=== PATIENT | female | born 1995 | race Caucasian/White ===

== ENCOUNTER 2018-06-26 15:20 | Emergency (ER) | payer OTHER ==
--- NOTE | 2018-06-26 16:17 | ER Document Report ---
ED Medical Screen (RME) - General Chief Complaint: Abdominal Pain Stated Complaint: ABDOMINAL PAIN Time Seen by Provider: 06/26/18 16:10 Mode of Arrival: Ambulatory Information source: Patient Notes: This is a 22-year-old female 2 para 1, last normal menstrual period May 13 () who presents to the emergency room with lower abdominal pain since last night. Patient denies vaginal bleeding. Surgical history: Chiari malformation (in seventh grade in [place]), tonsils Daniels's: Penicillin Allergies: Codeine - Related Data Allergies/Adverse Reactions: codeine Allergy (Verified 06/26/18 15:24) Physical Exam - Vital signs Vitals: Temp Pulse Resp BP Pulse Ox 98.5 F 93 14 121/55 L 100 06/26/18 15:55 06/26/18 15:55 06/26/18 15:55 06/26/18 15:55 06/26/18 15:55 Course - Vital Signs Vital signs: Temp Pulse Resp BP Pulse Ox 98.5 F 93 14 121/55 L 100 06/26/18 15:55 06/26/18 15:55 06/26/18 15:55 06/26/18 15:55 06/26/18 15:55
[2018-06-26 17:17] LABS: APPEARANCE,URINE CLEAR; BILIRUBIN,URINE NEGATIVE (NEGATIVE); COLOR,URINE STRAW; GLUCOSE, URINE NEGATIVE (NEGATIVE); KETONES,URINE NEGATIVE (NEGATIVE); LEUKOCYTE ESTERASE,URINE SMALL (NEGATIVE); NITRITE,URINE NEGATIVE (NEGATIVE); PROTEIN,URINE NEGATIVE (NEGATIVE); URINE SPECIFIC GRAVITY 1.003; UROBILINOGEN,URINE NEGATIVE mg/dL (<2.0)
--- NOTE | 2018-06-26 19:04 | ER Document Report ---
ED General <JIMENA FARRAR - Last Filed: 06/26/18 19:36> - General Mode of Arrival: Ambulatory Information source: Patient <BARBARA MORAN - Last Filed: 06/27/18 02:08> - General Chief Complaint: Abdominal Pain Stated Complaint: ABDOMINAL PAIN Time Seen by Provider: 06/26/18 16:10 Notes: Patient is a 22-year-old female, currently approximatly 7 weeks , with a history of Chiari malformation type 1 presents to the emergency department complaining of left lower quadrant abdominal pain onset 5 days ago. Patient states at that time, she was moving from a sitting position to a standing position when she felt a sharp pain over her left ovary. Patient states the pain took her breath away and she immediately had to "squat". She states since onset, she has had constant left lower quadrant abdominal pain which is nonradiating. She states the pain is relieved when sitting still. Patient is currently . Patient's last menstrual period was May 13, 2018.Patient states that she has not seen a steeping press operator and is currently taking [id number] vitamins. (BARBARA MORAN) - Related Data Allergies/Adverse Reactions: codeine Allergy (Verified 06/26/18 15:24) Past Medical History - General Information source: Patient - Social History Smoking Status: Current Every Day Smoker Cigarette use (# per day): Yes - Approx. 10 cigs a day. Chew tobacco use (# tins/day): No Frequency of alcohol use: None Drug Abuse: None Family History: Reviewed & Not Pertinent Patient has suicidal ideation: No Patient has homicidal ideation: No - Past Medical History Cardiac Medical History: Reports: Hx Hypertension - during first Past Surgical History: Reports: Hx Neurologic Surgery - brain surgery in middle school to correctn chiari malformation, Hx Tonsillectomy <DEANBARBARA - Last Filed: 06/27/18 02:08> Review of Systems - Review of Systems Constitutional: No symptoms reported EENT: No symptoms reported Cardiovascular: No symptoms reported Respiratory: No symptoms reported Gastrointestinal: See HPI, Abdominal pain Genitourinary: No symptoms reported Female Genitourinary: See HPI, Musculoskeletal: No symptoms reported Skin: No symptoms reported Hematologic/Lymphatic: No symptoms reported Neurological/Psychological: No symptoms reported -: Yes All other systems reviewed and negative <BARBARA MORAN - Last Filed: 06/27/18 02:08> Physical Exam <BARBARA MORAN - Last Filed: 06/27/18 02:08> - Vital signs Vitals: Temp Pulse Resp BP Pulse Ox 98.5 F 93 14 121/55 L 100 06/26/18 15:55 06/26/18 15:55 06/26/18 15:55 06/26/18 15:55 06/26/18 15:55 - Notes Notes: GENERAL: Alert, interacts well. No acute distress. HEAD: Normocephalic, atraumatic. EYES: Pupils equal, round, and reactive to light. Extraocular movements intact. ENT: Oral mucosa moist, tongue midline. NECK: Full range of motion. Supple. Trachea midline. LUNGS: Clear to auscultation bilaterally, no wheezes, rales, or rhonchi. No respiratory distress. HEART: Regular rate and rhythm. No murmurs, gallops, or rubs. ABDOMEN: Soft, minimal tenderness to palpation to the left pelvic region. Non- distended. Bowel sounds present in all 4 quadrants. EXTREMITIES: Moves all 4 extremities spontaneously. NEUROLOGICAL: Alert and oriented x3. Normal speech. PSYCH: Normal affect, normal mood. SKIN: Warm, dry, normal turgor. No rashes or lesions noted. (BARBRAA MORAN) Course - Diagnostic Test Radiology reviewed: Reports reviewed - Ultrasound shows a 6-week 6-day IUP with heart rate 124. No other abnormalities. <JIMENA FARRAR - Last Filed: 06/26/18 19:36> - Vital Signs Vital signs: Temp Pulse Resp BP Pulse Ox 98.5 F 104 H 16 133/61 H 100 06/26/18 15:55 06/26/18 20:00 06/26/18 20:00 06/26/18 20:00 06/26/18 20:00 - Laboratory Laboratory results interpreted by ne: 06/26/18 06/26/18 16:59 16:59 Beta HCG, Quant 76767.00 H Ur Leukocyte Esterase SMALL H Discharge <JIMENA FARRAR - Last Filed: 06/26/18 19:36> <BARBARA MORAN - Last Filed: 06/27/18 02:08> - Discharge Clinical Impression: Intrauterine , Pelvic pain Urinary tract infection Qualifiers: Urinary tract infection type: site unspecified Hematuria presence: without hematuria Qualified Code(s): N39.0 - Urinary tract infection, site not specified Condition: Stable Disposition: HOME, SELF-CARE Additional Instructions: : You are . care is best started as early in as possible. If you're unsure about continuing this , you should discuss this with your physician or with tire and tube repairer at [facility]. You should take only medications approved by your physician. Acetaminophen can safely be taken for minor pains. As a rule, medication for chronic conditions such as asthma or seizures can safely be continued. You should discuss with the physician every medicine you take. Any regular exercise program can be continued. Talk to your physician, however, before engaging in competitive or demanding sports. Alcohol, smoking, and "street drugs" are dangerous to your baby. Cocaine is especially dangerous. Don't use any illicit drugs! Pelvic Pain in Lower abdominal pain during can have many causes. We look for serious causes such as appendicitis, tubal , miscarriage, placental sep aration, or urinary tract infection. Less serious causes of pain include corpus luteum cyst (ovarian cyst of ) or stretching of the pelvic tissues by the enlarging uterus. Sometimes the pain comes from the bowels. If no specific cause for the pain is found, we attribute the pain to stretching of the uterine ligaments. This is called "round ligament strain." It is not dangerous. Just rest until the pain goes away. Call us or come back for reexamination if any problems occur, such as: (1) Pain that becomes more severe, steady, or becomes concentrated in one specific area. Also, pain that is more severe with movement or coughing. (2) Vomiting that persists or becomes more frequent. (3) Blood in the vomitus, urine, or bowel movements. Blood in the stool may have a tarry or black appearance. (4) Shaking chills or fever greater than 100 degrees. (5) The abdomen becomes more distended or swollen. (6) Bowel movements cease. (7) Vaginal bleeding. Urinary Tract Infection Your evaluation indicates that you have a urinary tract infection. This is due to germs growing in the bladder. This is a common problem. This infection usually responds quickly to antibiotics. Your antibiotic should be taken exactly as prescribed. Drink plenty of fluids -- three to four quarts a day. Occasionally, a bladder anesthetic will be prescribed to help stop the feeling of urgency until the antibiotic has a chance to clear the infection. This may cause your urine to be dark orange. Certain urine infections require a culture. If the doctor obtained a culture, the results will be back in two days. You should call to see if a change in treatment is needed. A repeat urinalysis after you finish treatment is often recommended. The physician will let you know if further testing is required. Call the doctor if you develop fever, chills, flank pain, inability to urinate, or blood in the urine. Your ultrasound shows a 6-week 6-day intrauterine with a heart rate of 124 bpm. There were no abnormalities seen on the ultrasound. Your urine suggests you may have a urinary tract infection, so you will be started on antibiotics for this. There is no clear explanation for your left sided pelvic discomfort at this time. You should take the antibiotics as prescribed. Drink plenty of fluids. Follow-up with the health department or [facility]. RETURN TO THE EMERGENCY ROOM IF ANY NEW OR WORSENING SYMPTOMS. Prescriptions: Cephalexin Monohydrate [Keflex 500 mg Capsule] 500 mg PO TID #15 capsule Referrals: [facility] [Provider Group] - Follow up in 3-5 days Scribe Attestation: 06/26/18 19:37 I personally performed the services described in the documentation, reviewed and edited the documentation which was dictated to the scribe in my presence, and it accurately records my words and actions. (JIMENA FARRAR) Scribe Documentation - Scribe Written by Jess:: Jess Miranda, 06/26/2018 19:17 acting as scribe for :: Magen <BARBARA MORAN - Last Filed: 06/27/18 02:08>
--- NOTE | 2018-06-26 19:11 | RADIOLOGY REPORT (SQ) ---
EXAM DESCRIPTION: U/S OB TRANSVAGINAL W/O DOP COMPLETED DATE/TIME: 06/26/2018 6:51 pm REASON FOR STUDY: abd pain, early COMPARISON: None. TECHNIQUE: Transvaginal and transabdominal static and realtime grayscale images acquired of the pelv is. Additional selected spectral and color Doppler images recorded. All images stored on PACs. [facility],809 CLINICAL DATES: LMP 05/13/2018. 6 weeks 2 days. LIMITATIONS: None. FINDINGS: FETUS: Single Living intrauterine . ULTRASOUND EGA: 6 weeks 6 days. ULTRASOUND RADHA: 02/13/2019 EFW: Not applicable less than 20 weeks. CRL: 0.85 cm FHR: 124 beats per minute. SURVEY: Too early to assess. AMNIOTIC FLUID: Adequate amount. PLACENTA: Not yet developed due to early gestation. SUBCHORIONIC BLEED: No SIZE OF BLEED: Not applicable. UTERUS: No masses. No anomalies. CERVICAL LENGTH: 3 cm. Closed. RIGHT ADNEXA: Normal ovary with normal vascular flow. No adnexal free fluid. No adnexal masses. LEFT ADNEXA: Normal ovary with normal vascular flow. No adnexal free fluid. No adnexal masses. FREE FLUID: None. OTHER: No other significant finding. IMPRESSION: LIVING INTRAUTERINE . EGA 6 weeks 6 days. Trimester of : First - 0 to 13 weeks. TECHNICAL DOCUMENTATION: JOB ID: [id number] [employer]- All Rights Reserved Reading location - IP/workstation name: [email or web address]
[2018-06-26] MEDS ORDERED: CEPHALEXIN 500 MG CAPSULE PO ONE (19:40)
[2018-06-26 20:45] VITALS: BP 133/61
== END 2018-06-26 20:00 | disposition home or self-care (01) ==
LOC: ER 15:20
DX: O23.41 Unspecified infection of urinary tract in pregnancy, first trimester (principal); O26.91 Pregnancy related conditions, unspecified, first trimester; R10.32 Left lower quadrant pain; R10.2 Pelvic and perineal pain; O99.331 Smoking (tobacco) complicating pregnancy, first trimester; F17.210 Nicotine dependence, cigarettes, uncomplicated; Z3A.01 Less than 8 weeks gestation of pregnancy; Z88.6 Allergy status to analgesic agent
CPT/HCPCS: 36415; 76817; 81001; 84702; 86900; 86901; 87086; 87088; 87186; 99284